=== PATIENT | male | born 1950 | race Caucasian/White ===

== ENCOUNTER → 2024-09-18 | Outpatient (REF) | payer MEDICARE ==
[~2024-09-18] MED LIST: BLOOD PRESSURE; ECOT81TA5 PO
[2024-09-18 18:36] LABS: BASO # 0.2 10^3/uL (0.0-0.2); BASO % 1.3 % (0.0-1.0); EOS # 0.3 10^3/uL (0.0-0.5); EOS % 2.6 % (0.0-3.0); HEMATOCRIT 49.2 % (42.0-52.0); HEMOGLOBIN 16.2 g/dl (13.5-17.5); LYMPH # 1.4 10^3/uL (1.5-5.0); MEAN CORPUSCULAR HEMOGLOBIN 28.6 pg (27.0-33.0); MEAN CORPUSCULAR HGB CONC 32.9 g/dl (32.0-36.5); MEAN CORPUSCULAR VOLUME 86.9 fl (80.0-96.0); MONO # 0.7 10^3/uL (0.0-0.8); MONO % 5.7 % (2.0-8.0); NEUTROPHILS # 9.1 10^3/uL (1.5-8.5); NEUTROPHILS % 78.1 % (36.0-66.0); PLATELET COUNT, AUTOMATED 262 10^3/uL (150-450); RED BLOOD COUNT 5.66 10^6/uL (4.30-6.10); WHITE BLOOD COUNT 11.7 10^3/uL (4.0-10.0)
[2024-09-18 18:43] LABS: HEMOGLOBIN A1c 5.5 % (4.0-6.0)
[2024-09-18 19:06] LABS: ALBUMIN 4.2 G/DL (3.2-5.2); ALKALINE PHOSPHATASE 56 U/L (40-129); ALT/SGPT 14 U/L (7.0-40); AST/SGOT 11 U/L (<34); BILIRUBIN,DIRECT 0.1 MG/DL (<0.4); BILIRUBIN,TOTAL 0.5 MG/DL (0.3-1.2); BLOOD UREA NITROGEN 26 MG/DL (9-23); CALCIUM LEVEL 9.9 MG/DL (8.3-10.6); CARBON DIOXIDE LEVEL 24 MMOL/L (20-31); CHLORIDE LEVEL 106 MMOL/L (98-107); CHOLESTEROL LEVEL 221 MG/DL (<200); CREATININE FOR GFR 1.03 MG/DL (0.70-1.30); GLOMERULAR FILTRATION RATE > 60.0 (>42); GLUCOSE, FASTING 97 MG/DL (74-106); HDL CHOLESTEROL 44.2 MG/DL (>40); LDL CHOLESTEROL 122.2 MG/DL (<100); NON-HDL-C 176.8 MG/DL; POTASSIUM SERUM 4.8 MMOL/L (3.5-5.1); SODIUM LEVEL 141 MMOL/L (136-145); THYROID STIMULATING HORMONE 2.195 uIU/ML (0.55-4.78); TOTAL PROTEIN 7.7 G/DL (5.7-8.2); TRIGLYCERIDES LEVEL 273 MG/DL (<150)
== END ==
LOC: M LAB REF 16:26
PROVIDERS: ATTEND Nurse Practitioner Family
DX: H02.60 Xanthelasma of unspecified eye, unspecified eyelid (principal); E66.3 Overweight; R53.83 Other fatigue

== ENCOUNTER → 2024-09-24 | Outpatient (CLI) | payer MEDICARE | LOC: M CARPUL 08:35 | PROVIDERS: ATTEND Nurse Practitioner Family | DX: Z01.818 Encounter for other preprocedural examination (principal) ==

== ENCOUNTER 2024-10-02 10:48 | Day surgery (SDC) | payer MEDICARE ==
[~2024-10-02] VITALS: Ht 172.7 cm; Wt 70.9 kg
[~2024-10-02 10:48] MED LIST changes: +PHENYLEPHRINE 10% OPHTH SOL 5ML OS PRN
[2024-10-02] MEDS ORDERED: ATOR1TAB19 PO (11:34)
[2024-10-02] MEDS ORDERED: TELM1TAB35 PO (11:34)
[2024-10-02] MEDS: CYCLOPENTOLATE 1% OPHTH SOLN 2ML BTL OS SCH (11:36)
[2024-10-02] MEDS: OFLOXACIN 0.3 % (OCUFLOX) OPTH SOL 5ML OS ONE (11:37)
[2024-10-02] MEDS: PHENYLEPHRINE 2.5% OPHTH SOL 2ML OS SCH (11:37)
[2024-10-02] MEDS: LIDOCAINE 3.5 % 1ML OPHTH TOPICAL GEL OU ONE (11:37)
[2024-10-02] MEDS: TROPICAMIDE 1% OPHTH SOLN 15ML OS SCH (11:37)
[2024-10-02] MEDS ORDERED: fentaNYL 100 MCG/2 ML INJECTION As Ordered ONE (12:24)
[2024-10-02] MEDS ORDERED: MIDAZOLAM INJ 2MG/2ML VIAL As Ordered ONE (12:24)
[2024-10-02] MEDS: CEFUROXIME 1MG/0.1ML INTRACAMERAL INJ As Ordered ONE (12:57)
[2024-10-02] MEDS: BSS IRRIG/VANCO(10MG)/TOBRA(5MG)/EPINEPH(1:1000-0.5CC)500ML BAG-ORONLY As Ordered ONE (13:06)
[2024-10-02] MEDS: LIDOCAINE 1% SDV 5ML VIAL As Ordered ONE (13:06)
[2024-10-02 13:17] VITALS: BP 160/79; TEMP 97.2; O2SAT 97
== END 2024-10-02 13:34 | disposition home or self-care (01) ==
LOC: M SDC 10:48
PROVIDERS: ATTEND Ophthalmology
DX: H25.12 Age-related nuclear cataract, left eye (principal); H57.03 Miosis; I10 Essential (primary) hypertension; Z79.899 Other long term (current) drug therapy
CPT/HCPCS: 66982; J0697; J2250; J3010; V2632

== ENCOUNTER 2024-10-09 10:43 | Day surgery (SDC) | payer MEDICARE ==
[~2024-10-09] VITALS: Ht 172.7 cm; Wt 70.8 kg
[~2024-10-09 10:43] MED LIST changes: +ATOR1TAB19 PO; +MIDAZOLAM INJ 2MG/2ML VIAL As Ordered ONE; +PHENYLEPHRINE 10% OPHTH SOL 5ML OD PRN; -PHENYLEPHRINE 10% OPHTH SOL 5ML OS PRN; +TELM1TAB35 PO; +fentaNYL 100 MCG/2 ML INJECTION As Ordered ONE
[2024-10-09] MEDS: TROPICAMIDE 1% OPHTH SOLN 15ML OD SCH (12:18)
[2024-10-09] MEDS: OFLOXACIN 0.3 % (OCUFLOX) OPTH SOL 5ML OD ONE (12:18)
[2024-10-09] MEDS: PHENYLEPHRINE 2.5% OPHTH SOL 2ML OD SCH (12:18)
[2024-10-09] MEDS: LIDOCAINE 3.5 % 1ML OPHTH TOPICAL GEL OU ONE (12:18)
[2024-10-09] MEDS: CYCLOPENTOLATE 1% OPHTH SOLN 2ML BTL OD SCH (12:18)
[2024-10-09] MEDS: BSS IRRIG/VANCO(10MG)/TOBRA(5MG)/EPINEPH(1:1000-0.5CC)500ML BAG-ORONLY As Ordered ONE (14:21)
[2024-10-09] MEDS: LIDOCAINE 1% SDV 5ML VIAL As Ordered ONE (14:21)
[2024-10-09] MEDS: CEFUROXIME 1MG/0.1ML INTRACAMERAL INJ As Ordered ONE (14:21)
[2024-10-09 14:37] VITALS: BP 155/71; TEMP 97.5; O2SAT 97
== END 2024-10-09 14:55 | disposition home or self-care (01) ==
LOC: M SDC 10:43
PROVIDERS: ATTEND Ophthalmology
DX: H25.11 Age-related nuclear cataract, right eye (principal); I10 Essential (primary) hypertension; Z79.82 Long term (current) use of aspirin; Z79.899 Other long term (current) drug therapy
CPT/HCPCS: 66984; J0697; J2250; J3010; V2632

== ENCOUNTER → 2024-10-27 | Outpatient (REF) | payer MEDICARE ==
[~2024-10-27] MED LIST changes: -MIDAZOLAM INJ 2MG/2ML VIAL As Ordered ONE; -PHENYLEPHRINE 10% OPHTH SOL 5ML OD PRN; -fentaNYL 100 MCG/2 ML INJECTION As Ordered ONE
[2024-10-27 19:20] LABS: ALBUMIN 3.7 G/DL (3.2-5.2); ALKALINE PHOSPHATASE 56 U/L (40-129); ALT/SGPT 29 U/L (7.0-40); AST/SGOT 18 U/L (<34); BILIRUBIN,DIRECT 0.2 MG/DL (<0.4); BILIRUBIN,TOTAL 0.5 MG/DL (0.3-1.2); BLOOD UREA NITROGEN 20 MG/DL (9-23); CALCIUM LEVEL 9.3 MG/DL (8.3-10.6); CARBON DIOXIDE LEVEL 26 MMOL/L (20-31); CHLORIDE LEVEL 107 MMOL/L (98-107); CREATININE FOR GFR 1.05 MG/DL (0.70-1.30); GLOMERULAR FILTRATION RATE > 60.0 (>42); GLUCOSE, FASTING 97 MG/DL (74-106); POTASSIUM SERUM 4.5 MMOL/L (3.5-5.1); SODIUM LEVEL 143 MMOL/L (136-145); TOTAL PROTEIN 7.5 G/DL (5.7-8.2)
== END ==
LOC: M LAB REF 16:41
PROVIDERS: ATTEND Family Medicine Addiction Medicine
DX: I10 Essential (primary) hypertension (principal); E78.5 Hyperlipidemia, unspecified

== ENCOUNTER → 2025-01-26 | Outpatient (REF) | payer MEDICARE ==
[2025-01-26 18:20] LABS: ALBUMIN 4.2 G/DL (3.2-5.2); BILIRUBIN,DIRECT 0.2 MG/DL (<0.4); BILIRUBIN,TOTAL 0.5 MG/DL (0.3-1.2); CHOLESTEROL RISK RATIO 3.91 (<5); HDL CHOLESTEROL 38.8 MG/DL (>40); LDL CHOLESTEROL 76.2 MG/DL (<100); NON-HDL-C 113.2 MG/DL; TOTAL PROTEIN 7.6 G/DL (5.7-8.2)
== END ==
LOC: M LAB REF 17:37
PROVIDERS: ATTEND Nurse Practitioner Family
DX: E78.5 Hyperlipidemia, unspecified (principal)

== ENCOUNTER → 2025-04-20 | Outpatient (REF) | payer MEDICARE ==
[2025-04-20 17:21] LABS: BASO # 0.2 10^3/uL (0.0-0.2); BASO % 1.5 % (0.0-1.0); EOS # 1.5 10^3/uL (0.0-0.5); EOS % 12.2 % (0.0-3.0); LYMPH # 2.3 10^3/uL (1.5-5.0); LYMPH % 18.9 % (24.0-44.0); MONO # 0.7 10^3/uL (0.0-0.8); MONO % 5.9 % (2.0-8.0); NEUTROPHILS # 7.6 10^3/uL (1.5-8.5); NEUTROPHILS % 61.3 % (36.0-66.0); PLATELET COUNT, AUTOMATED 340 10^3/uL (150-450)
== END ==
LOC: M LAB REF 16:36
PROVIDERS: ATTEND Nurse Practitioner Family
DX: D72.829 Elevated white blood cell count, unspecified (principal)